=== PATIENT | male | born 1960 | race Caucasian/White ===

== ENCOUNTER 2020-07-24 17:17 | Outpatient (REF) | payer OTHER, SELFPAY | END 2020-07-24 17:18 | disposition home or self-care (01) | LOC: HO.LAB 17:17 | PROVIDERS: PCP Nurse Practitioner Family; Visit Provider Internal Medicine | DX: Z20.828 Contact with and (suspected) exposure to other viral communicable diseases (principal) | CPT/HCPCS: U0003 ==

== ENCOUNTER → 2021-10-08 12:08 | Outpatient (BNVA) | payer OTHER, SELFPAY | PROVIDERS: PCP Nurse Practitioner Family; Visit Provider Physician Assistant Medical | DX: S33.9XXA Sprain of unspecified parts of lumbar spine and pelvis, initial encounter (principal); X50.3XXA Overexertion from repetitive movements, initial encounter | CPT/HCPCS: 99203 ==

== ENCOUNTER → 2021-10-11 12:55 | Outpatient (BNVA) | payer OTHER, SELFPAY | PROVIDERS: PCP Nurse Practitioner Family; Visit Provider Physician Assistant | DX: S39.012A Strain of muscle, fascia and tendon of lower back, initial encounter (principal); X58.XXXA Exposure to other specified factors, initial encounter | CPT/HCPCS: 99214 ==

== ENCOUNTER → 2021-10-29 13:04 | Outpatient (BNVA) | payer OTHER, SELFPAY | PROVIDERS: PCP Nurse Practitioner Family; Visit Provider Physician Assistant Medical | DX: S39.012D Strain of muscle, fascia and tendon of lower back, subsequent encounter (principal); X58.XXXD Exposure to other specified factors, subsequent encounter | CPT/HCPCS: 99213 ==

== ENCOUNTER → 2021-11-19 09:12 | Outpatient (BNVA) | payer OTHER, SELFPAY | PROVIDERS: PCP Nurse Practitioner Family; Visit Provider Physician Assistant Medical | DX: S39.012D Strain of muscle, fascia and tendon of lower back, subsequent encounter (principal); X58.XXXD Exposure to other specified factors, subsequent encounter | CPT/HCPCS: 99213 ==

== ENCOUNTER → 2021-12-03 08:58 | Outpatient (BNVA) | payer OTHER, SELFPAY | PROVIDERS: PCP Nurse Practitioner Family; Visit Provider Physician Assistant Medical | DX: S39.012D Strain of muscle, fascia and tendon of lower back, subsequent encounter (principal); X58.XXXD Exposure to other specified factors, subsequent encounter; M54.16 Radiculopathy, lumbar region | CPT/HCPCS: 70140; 99213 ==

== ENCOUNTER 2021-12-17 13:19 | Outpatient (REF) | payer OTHER, SELFPAY ==
--- NOTE | ~2021-12-17 | MR_ITS ---
EXAMINATION: MR LUMBAR SPINE WITHOUT CONTRAST CLINICAL INFORMATION: 61-year-old with low back pain and right lower extremity radicular symptoms. Right lumbar radiculopathy. COMPARISON: None TECHNIQUE: MRI of the lumbar spine was obtained using routine sequences without contrast. FINDINGS: Coronal Alignment: Normal. Sagittal Alignment: Normal. Lumbosacral Junction: Normal. Rudimentary S1-S2 intervertebral disc. Vertebral Bodies: Vertebral body heights are well maintained. Disc Spaces and Endplates: Moderate disc space height loss with intradiscal degenerative signal changes noted at L5-S1 with mild anterolateral spondylosis. Otherwise, the lumbar intervertebral disc space heights are relatively well maintained, with mild degrees of multilevel disc desiccation and a Schmorl's node along the inferior endplate of L1. Tiny Schmorl's node along the inferior endplate of L3. Minor degrees of multilevel spondylosis. Spinal Canal: No abnormal developmental findings. Bone Marrow: No significant marrow-replacing process or bone marrow edema. Conus Medullaris: Terminates at L2. Morphology and signal is normal. Intradural Nerve Roots: Within normal limits. L5-S1: Mild disc bulging noted with a small central disc protrusion with slight flattening of the central dural sac without nerve root compression or displacement. Minor facet hypertrophic changes are noted bilaterally without significant spinal canal stenosis. There is mild bilateral neural foraminal stenosis without neural impingement. L4-L5: Minor annular bulging noted with slight flattening of the ventral dural sac with slight ligamentum flavum thickening and [id number] bilateral facet arthrosis. No significant spinal canal stenosis. There is moderate left-sided and [id number] right-sided neural foraminal stenosis, with mild encroachment on the exiting left L4 nerve root and minimal encroachment on the exiting right L4 nerve root. L3-L4: Mild diffuse annular bulging with slight flattening of the ventral dural sac. Moderate left and mild right-sided facet arthropathy without significant spinal canal stenosis. [id number] bilateral neural foraminal stenosis is noted with disc bulging abutting the exiting right L3 nerve root. L2-L3: Minimal annular bulging noted. Yuja-ov-oxtandmg facet arthrosis noted with mild ligamentum flavum thickening without significant spinal canal stenosis. Mild foraminal narrowing bilaterally without neural impingement. L1-L2: Normal disc contour. Mild ligamentum flavum thickening and facet arthropathy bilaterally without significant canal or neural foraminal stenosis. Small central extruded disc herniation with slight cephalad migration noted at T12-L1 with slight flattening of the ventral dural sac without cord impingement. Paraspinal/Retroperitoneal: The paravertebral soft tissues are unremarkable in appearance. MR/MR lumbar spine wo con IMPRESSION: 1. Multilevel discogenic degenerative changes, most apparent at L5-S1, with mild multilevel spondylosis and multilevel bilateral facet arthropathy. 2. No significant central spinal canal stenosis and no significant lateral recess stenosis. 3. Predominantly mild and moderate degrees of bilateral neural foraminal stenosis between L2-L3 and L5-S1 inclusive, as detailed by level above, most apparent at L4-L5 and L3-L4.
== END 2021-12-17 13:20 | disposition home or self-care (01) ==
LOC: HO.MRI 13:19
PROVIDERS: PCP Family Medicine; Visit Provider Internal Medicine
DX: M54.16 Radiculopathy, lumbar region (principal)
CPT/HCPCS: 72148

== ENCOUNTER → 2021-12-20 09:06 | Outpatient (BNVA) | payer OTHER, SELFPAY | PROVIDERS: PCP Family Medicine; Visit Provider Physician Assistant | DX: S39.012D Strain of muscle, fascia and tendon of lower back, subsequent encounter (principal); X50.3XXD Overexertion from repetitive movements, subsequent encounter | CPT/HCPCS: 99214 ==

== ENCOUNTER → 2022-01-10 08:54 | Outpatient (BNVA) | payer OTHER, SELFPAY | PROVIDERS: PCP Family Medicine; Visit Provider Physician Assistant | DX: S39.012D Strain of muscle, fascia and tendon of lower back, subsequent encounter (principal); X58.XXXD Exposure to other specified factors, subsequent encounter; M54.16 Radiculopathy, lumbar region | CPT/HCPCS: 99213 ==